=== PATIENT | male | born 1950 | race Caucasian/White ===

== ENCOUNTER → 2016-11-10 | Outpatient (REF) | payer OTHER ==
[~2016-11-10] MED LIST: CIPR500T89 PO; FLAG500T PO; MELO15TA4 PO; QUIN324C2 PO; TRAM50TA2 PO; TYLE500T78 PO; ZITH500T PO
[2016-11-10 12:09] LABS: ALBUMIN 3.3 GM/DL (3.2-5.2); ALBUMIN/GLOBULIN RATIO 1.18 (1.00-1.93); ALKALINE PHOSPHATASE 103 U/L (45-117); ALT/SGPT 27 U/L (12-78); ANION GAP 7 MEQ/L (8-16); AST/SGOT 20 U/L (15-37); BILIRUBIN,TOTAL 0.3 MG/DL (0.2-1.0); BLOOD UREA NITROGEN 22 MG/DL (7-18); CALCIUM LEVEL 8.6 MG/DL (8.8-10.2); CARBON DIOXIDE LEVEL 29 MEQ/L (21-32); CHLORIDE LEVEL 106 MEQ/L (98-107); CHOLESTEROL LEVEL 171 MG/DL (<200); CREATININE FOR GFR 0.86 MG/DL (0.70-1.30); GLOMERULAR FILTRATION RATE > 60.0 (>49); GLUCOSE, FASTING 97 MG/DL (80-110); POTASSIUM SERUM 4.3 MEQ/L (3.5-5.1); SODIUM LEVEL 142 MEQ/L (136-145); TOTAL PROTEIN 6.1 GM/DL (6.4-8.2); TRIGLYCERIDES LEVEL 51 MG/DL (<150)
== END ==
LOC: M SFHCLERA 08:02
PROVIDERS: ATTEND Physician Assistant
DX: E78.2 Mixed hyperlipidemia (principal); R73.01 Impaired fasting glucose; E55.9 Vitamin D deficiency, unspecified

== ENCOUNTER 2017-03-28 06:40 | Observation (INO) | payer BC, OTHER ==
[~2017-03-28] VITALS: Ht 165.1 cm; Wt 102.5 kg
[~2017-03-28 06:40] MED LIST changes: +CIPR-249 PO; -CIPR500T89 PO
[2017-03-28] MEDS ORDERED: CO Q100C10 PO (07:18)
[2017-03-28] MEDS ORDERED: [UNRECOGNIZED DRUG - CODE] PO (07:18)
[2017-03-28] MEDS ORDERED: MULT1TAB19 PO (07:18)
[2017-03-28] MEDS ORDERED: GABA-283 PO (07:18)
[2017-03-28] MEDS ORDERED: CALC1TAB40 PO (07:18)
[2017-03-28] MEDS ORDERED: GLUC750T22 PO (07:18)
[2017-03-28] MEDS ORDERED: VITA1CHW5 PO (07:18)
[2017-03-28] MEDS ORDERED: [UNRECOGNIZED DRUG - CODE] PO (07:18)
[2017-03-28] MEDS ORDERED: GARL10CA2 PO (07:18)
[2017-03-28] MEDS ORDERED: CHON150C PO (07:18)
[2017-03-28] MEDS ORDERED: CRAN600T PO (07:18)
--- NOTE | 2017-03-28 07:29 | ECGEPIP ---
Stationary ECG Study [facility] - ED Test Date: 2017-03-28 Pat Name: GHAZALA DAMIAN Department: Room: - Gender: M [employer]st: : 1950 Requested By: LOVE BARNETT Order Number: [id number] Reading MD: Chelsea Abreu Measurements Intervals Chandler Rate: 57 P: 35 MA: 188 QRS: -58 QRSD: 156 T: 4 QT: 431 QTc: 420 Interpretive Statements SINUS BRADYCARDIA RIGHT BUNDLE BRANCH BLOCK LEFT ANTERIOR FASCICULAR BLOCK SIMILAR 07/11/16 Electronically Signed On 03-28-2017 7:28:46 EDT by Chelsea Abreu
--- NOTE | 2017-03-28 07:32 | REP ---
Portable chest, 03/28/2017, 07:07 a.m., single AP view the patient semi upright: Comparison is a 11/17 2014. The lung cruz are clear, unchanged. Cardiac size appears enlarged, however there has magnification from portable positioning. Cardiac size is unchanged. The caitlin, mediastinum, bony thorax are unremarkable. Impression: No acute cardiopulmonary findings. Chronic cardiomegaly. Signed by Saul Mallory MD 03/28/2017 07:23 A
[2017-03-28 07:53] LABS: INR 1.03
[2017-03-28 07:56] LABS: BASO % 0.4 % (0.0-1.0); EOS # 0.2 K/mm3 (0.0-0.50); EOS % 1.8 % (0.0-3.0); LARGE UNSTAINED CELL # 0.1 K/mm3 (0.0-0.4); LARGE UNSTAINED CELL % 0.6 % (0.0-4.0); LYMPH # 0.8 K/mm3 (1.5-4.5); LYMPH % 6.3 % (24.0-44.0); MEAN CORPUSCULAR HEMOGLOBIN 30.1 pg (27.0-33.0); MEAN CORPUSCULAR HGB CONC 32.8 g/dl (32.0-36.5); MEAN CORPUSCULAR VOLUME 91.6 fl (80.0-96.0); MONO # 0.8 K/mm3 (0.0-0.8); MONO % 6.4 % (0.0-5.0); NEUTROPHILS % 84.6 % (36.0-66.0); PLATELET COUNT, AUTOMATED 284 k/mm3 (150-450); WHITE BLOOD COUNT 11.9 K/mm3 (4.0-10.0)
[2017-03-28 08:00] LABS: ALBUMIN 2.9 GM/DL (3.2-5.2); ALBUMIN/GLOBULIN RATIO 0.81 (1.00-1.93); ALKALINE PHOSPHATASE 74 U/L (45-117); ALT/SGPT 24 U/L (12-78); ANION GAP 8 MEQ/L (8-16); AST/SGOT 20 U/L (15-37); BILIRUBIN,DIRECT 0.1 MG/DL (0.0-0.2); BILIRUBIN,TOTAL 0.4 MG/DL (0.2-1.0); BLOOD UREA NITROGEN 31 MG/DL (7-18); CALCIUM LEVEL 8.7 MG/DL (8.8-10.2); CARBON DIOXIDE LEVEL 28 MEQ/L (21-32); CHLORIDE LEVEL 104 MEQ/L (98-107); CREATININE FOR GFR 0.89 MG/DL (0.70-1.30); GLOMERULAR FILTRATION RATE > 60.0 (>49); GLUCOSE, FASTING 117 MG/DL (80-110); POTASSIUM SERUM 4.1 MEQ/L (3.5-5.1); SODIUM LEVEL 140 MEQ/L (136-145); TOTAL PROTEIN 6.5 GM/DL (6.4-8.2)
[2017-03-28] MEDS ORDERED: ONDANSETRON 4MG/2ML VIAL (J2405) IV ONE (08:15)
[2017-03-28] MEDS ORDERED: MORPHINE 2 MG/ML 1ML SYRINGE IV ONE ×2 (08:15→12:30)
--- NOTE | 2017-03-28 11:01 | REP ---
Soft-tissue ultrasound right wrist with Doppler: History: Status post radial artery catheterization procedure March 25, 2017 with right arm pain. Sonographic findings: Scanning of the region of the radial aspect the right wrist demonstrates patent radial artery without evidence of pseudoaneurysm or dissection or occlusion. No hematoma is appreciated. No abnormal fluid collection is seen. Impression: Unremarkable right wrist ultrasound with Doppler. No evidence of pseudoaneurysm, hematoma, or occlusion. Signed by Gildardo Del Angel MD 03/28/2017 04:22 P
[2017-03-28] MEDS ORDERED: MORPHINE 2 MG/ML 1ML SYRINGE IV PRN (12:30)
[2017-03-28] MEDS ORDERED: ONDANSETRON 4MG/2ML VIAL (J2405) IV PRN (12:30)
[2017-03-28] MEDS ORDERED: NEUR300C PO (13:31)
[2017-03-28] MEDS ORDERED: FLAX1000 PO (13:31)
[2017-03-28] MEDS ORDERED: ASCO250T PO (13:31)
[2017-03-28] MEDS ORDERED: [UNRECOGNIZED DRUG - CODE] PO (13:32)
[2017-03-28 14:46] VITALS: BP 132/68
[2017-03-28] MEDS: NORCO, ANEXSIA 5/325MG TABLET (HYDROcodone/ACETAMINOPHEN) PO PRN ×2 (15:45→19:37)
--- NOTE | 2017-03-28 16:15 | HPEPDOC ---
General Date of Admission Mar 28, 2017 at 12:23 Other Providers PCP: Carlos Manuel Crawley PA-C Chief Complaint The patient is a 66-year-old male admitted with a reason for visit of Postprocedural Pain Of Extremity. History of Present Illness 66-year-old male with past medical history of SURI, morbid obesity, diabetes mellitus, kidney stones, and chronic chest pain presented to the ER with a chief complaint of right wrist pain. Of note, the patient underwent an extensive cardiac workup at [facility] from 03/21-03/25/17 for complaints of chest pain over the last few months. He had a cardiac catheterization done which was done through the radial artery on the right upper extremity. There were no acute findings to explain the patient's chest pain according to the patient and there were no stents placed. The patient was subsequently discharged from the hospital. 2 days later the patient states that he started to feel significant pain in his right wrist and forearm area. He describes the pain as a burning sensation. He denies any trauma to the extremity or any change in coloration. He denies noting any swelling in the extremity. He described the pain as 8 out of 10 in intensity at its worst. He denies any complaints of fevers, chills, shortness of breath, palpitations, abdominal pain , or any nausea/vomiting/diarrhea. In the ER, an ultrasound of the right upper extremity revealed no acute findings. Vascular surgery was consulted and evaluated the patient in the ER as well. No further intervention was deemed indicated. At this time, the patient will be admitted to the hospitalist service for observation. Home Medications Scheduled (Multi Vitamin with Iron) 1 Tab Tab, 1 TAB PO DAILY, (Reported) (Glucosamine) 750 Mg Tab, 1,500 MG PO BID, (Reported) (Co Q 10) 100 Mg Cap, 100 MG PO BID, (Reported) (Calcium & Magnesium + Zin 334-134-5 mg) 1 Tab Tab, 1 TAB PO TID, (Reported) Ascorbic Acid (Ascorbic Acid) 250 Mg Tab, 250 MG PO BID, (Reported) Chondroitin Sulfate A (Chondroitin Sulfate) 150 Mg Cap, 1,200 MG PO BID, ( Reported) Cranberry Extract (Cranberry) 600 Mg Tab, 1,000 MG PO DAILY, (Reported) Gabapentin (Neurontin) 300 Mg Cap, 300 MG PO TID, (Reported) Garlic (Odor Free Garlic) 100 Mg Tab, 100 MG PO DAILY, (Reported) Linseed Oil (Flaxseed Oil) 1,000 Mg Cap, 1,000 MG PO DAILY, (Reported) Meloxicam (Meloxicam) 15 Mg Tab, 15 MG PO DAILY, (Reported) Methylsulfonylmethane (Msm) 1,000 Mg Cap, 1,000 MG PO TID, (Reported) Quinine Sulfate (Qualaquin) 324 Mg Cap, 324 MG PO DAILY, (Reported) Tramadol HCl (Tramadol HCl) 50 Mg Tab, 50 MG PO BID, (Reported) Scheduled PRN Acetaminophen (Tylenol Extra Strength) 500 Mg Tab, 1,000 MG PO PRN PRN for PAIN, (Reported) Allergies Coded Allergies: No Known Allergies (Verified , 03/18/03) Past Medical History Medical History As noted in HPI. Surgical History Gastric bypass, left breast mass removal, EGD and colonoscopy about 5 years ago , Penile lesion removal, Cardiac Catheterization on 03/25/17 Family History Father and brother had prostate cancer. Multiple members of the family with a history of diabetes Social History * Smoker: other (smoked a pipe daily for about 10 years, quit 20 years ago) Alcohol: occationally Drugs: denies Currently works as a welder fitter helper. Lives with his and is independent in his activities of daily living Review of Symptoms Other systems 10 point review of systems negative unless otherwise specified in HPI. Physical Examination General Exam: Positive: Alert, Cooperative, No Acute Distress ENT Exam: Positive: Atraumatic, Mucous membr. moist/pink Neck Exam: Negative: JVD Chest Exam: Positive: Clear to auscultation, Normal air movement Heart Exam: Positive: Rate Normal, Normal S1, Normal S2 Telemetry: Positive: Sinus Abdomen Exam: Positive: Soft, Negative: Tenderness Extremity Exam: Positive: Other (right upper extremity tender to palpation mostly on the dorsal surface extending from the forearm to the hand. However, no superficial swelling or lesions noted. No sign of compartment syndrome. Neurovascularly intact distally with strong pulses. Puncture site along the radial artery noted with no surrounding erythema or induration.) Psych Exam: Positive: Oriented x 3 Vital Signs Vital Signs Date Time Temp Pulse Resp B/P (MAP) Pulse Ox O2 Delivery O2 Flow Rate FiO2 03/28/17 15:45 20 03/28/17 14:46 98.6 70 132/68 (89) 93 Room Air 7/17/17 12:26 2.0 Laboratory Data Labs 24H Laboratory Tests 2 03/28/17 07:26: White Blood Count 11.9H, Red Blood Count 4.40, Hemoglobin 13.2L, Hematocrit 40.3L, Mean Corpuscular Volume 91.6, Mean Corpuscular Hemoglobin 30.1, Mean Corpuscular Hemoglobin Concent 32.8, Red Cell Distribution Width 14.0, Platelet Count 284, Neutrophils (%) (Auto) 84.6H, Lymphocytes (%) (Auto) 6.3L, Monocytes (%) (Auto) 6.4H, Eosinophils (%) (Auto) 1.8, Basophils (%) (Auto) 0.4, Neutrophils # (Auto) 10.0H, Lymphocytes # (Auto) 0.8L, Monocytes # (Auto) 0.8, Eosinophils # (Auto) 0.2, Basophils # (Auto) 0.0, Large Unclassified Cells % 0.6 , Large Unclassified Cells # 0.1, Prothrombin Time 13.6, Prothromb Time International Ratio 1.03, Activated Partial Thromboplast Time 29.9, Anion Gap 8 , Glomerular Filtration Rate > 60.0, Calcium Level 8.7L, Aspartate Amino Transf (AST/SGOT) 20, Alanine Aminotransferase (ALT/SGPT) 24, Alkaline Phosphatase 74, Total Bilirubin 0.4, Direct Bilirubin 0.1, Total Creatine Kinase 62, Creatine Kinase MB 1.0, Creatine Kinase MB Relative Index 1.61, Troponin I 0.04, B-Type Natriuretic Peptide 36.1, Total Protein 6.5, Albumin 2.9L, Albumin/Globulin Ratio 0.81L, Lipase 120, Thyroid Stimulating Hormone (TSH) 2.040 CBC/BMP Laboratory Tests 03/28/17 07:26 Red Blood Count 4.40, Mean Corpuscular Volume 91.6, Mean Corpuscular Hemoglobin 30.1, Mean Corpuscular Hemoglobin Concent 32.8, Red Cell Distribution Width 14.0 , Neutrophils (%) (Auto) 84.6 H, Lymphocytes (%) (Auto) 6.3 L, Monocytes (%) ( Auto) 6.4 H, Eosinophils (%) (Auto) 1.8, Basophils (%) (Auto) 0.4, Neutrophils # (Auto) 10.0 H, Lymphocytes # (Auto) 0.8 L, Monocytes # (Auto) 0.8, Eosinophils # (Auto) 0.2, Basophils # (Auto) 0.0 Plan / VTE VTE Prophylaxis Ordered?: Yes Plan Plan RUE Tenderness following Cardiac Catheterization on 03/25/17 U/S of the Extremity with no acute findings No signs of compartment syndrome noted Patient neurovascularly intact, strong pulse palpated distally No significant superficial lesions, swelling noted Possibly attributable to neuropathic pain following procedure? WBC slightly elevated at 11.9K, Afebrile, HR wnl, CRP ordered Will cont with pain management at this time Vascular Surgery on board--input appreciated Chronic Chest Pain EKG with no acute changes compared to previous tracings, initial troponin wnl-- will serially trend Patient apparently had a full work up at [facility] last week and was not found to have any acute findings Will obtain records Diet Controlled DM Cont diabetic diet Peripheral Neuropathy 2/2 DM Cont Gabapentin DVT Prophylaxis Heparin MOISES NGO MD Mar 28, 2017 16:15
[2017-03-28] MEDS: HEPARIN SOD (PORCINE) 5000 UNITS/ML VIAL SC SCH ×2 (16:24→21:45)
[2017-03-28 20:00] VITALS: BP 101/55
[2017-03-28] MEDS: GABAPENTIN 300 MG CAP PO SCH (21:43)
[2017-03-28] MEDS: traMADol 50 MG TAB PO SCH (21:44)
[2017-03-28] MEDS: PERCOCET 5MG/325MG TAB PO PRN (21:44)
[2017-03-28] MEDS: ASCORBIC ACID 250 MG TAB PO SCH (21:45)
[2017-03-28 23:59] VITALS: BP 110/64
[2017-03-29] MEDS ORDERED: SLF 3 ML SYR IV PRN (00:15)
[2017-03-29 04:45] VITALS: BP 110/74
[2017-03-29] MEDS: HEPARIN SOD (PORCINE) 5000 UNITS/ML VIAL SC SCH ×3 (05:14→21:26)
[2017-03-29] MEDS: SLF 3 ML SYR IV SCH ×3 (05:14→21:28)
[2017-03-29 08:00] VITALS: BP 126/78
[2017-03-29 08:33] LABS: MEAN CORPUSCULAR HEMOGLOBIN 30.2 pg (27.0-33.0); MEAN CORPUSCULAR HGB CONC 32.7 g/dl (32.0-36.5); MEAN CORPUSCULAR VOLUME 92.5 fl (80.0-96.0); RED CELL DISTRIBUTION WIDTH 13.9 % (11.5-14.5)
[2017-03-29 08:47] LABS: ANION GAP 8 MEQ/L (8-16); BLOOD UREA NITROGEN 24 MG/DL (7-18); CALCIUM LEVEL 8.8 MG/DL (8.8-10.2); CARBON DIOXIDE LEVEL 29 MEQ/L (21-32); CHLORIDE LEVEL 104 MEQ/L (98-107); CREATININE FOR GFR 0.87 MG/DL (0.70-1.30); GLOMERULAR FILTRATION RATE > 60.0 (>49); GLUCOSE, FASTING 90 MG/DL (80-110); MAGNESIUM LEVEL 2.3 MG/DL (1.8-2.4); POTASSIUM SERUM 4.4 MEQ/L (3.5-5.1); SODIUM LEVEL 141 MEQ/L (136-145)
--- NOTE | 2017-03-29 08:53 | IPNPDOC ---
Subjective Date Seen The patient was seen on 03/29/17. Subjective Chief Complaint/HPI Patient seen and examined at the bedside. States that he is feeling better and notes that his right upper extremity is in less pain and he has better range of motion. Objective Physical Examination General Exam: Positive: Alert, Cooperative, No Acute Distress ENT Exam: Positive: Atraumatic, Mucous membr. moist/pink Neck Exam: Negative: JVD Chest Exam: Positive: Clear to auscultation, Normal air movement Heart Exam: Positive: Rate Normal, Normal S1, Normal S2 Telemetry: Positive: Sinus Abdomen Exam: Positive: Soft, Negative: Tenderness Extremity Exam: Positive: Other (right upper extremity tender to palpation mostly on the dorsal surface extending from the forearm to the hand. However, no superficial swelling or lesions noted. No sign of compartment syndrome. Neurovascularly intact distally with strong pulses. Puncture site along the radial artery noted with no surrounding erythema or induration. Better range of motion of right sided fingers, hand and, wrist.) Psych Exam: Positive: Oriented x 3 Assessment /Plan Plan/VTE VTE Prophylaxis Ordered?: Yes Plan RUE Tenderness following Cardiac Catheterization on 03/25/17 U/S of the Extremity with no acute findings No signs of compartment syndrome noted Patient neurovascularly intact, strong pulse palpated distally No significant superficial lesions, swelling noted Possibly attributable to neuropathic pain following procedure? WBC has normalized, low grade fever overnight, HR wnl Patient states that his RUE is much less painful this morning, and he notes that he has improved ROM of the right sided fingers, hand, and wrist Occupational Therapy worked with him this morning as well Will cont with pain management at this time Vascular Surgery on board--input appreciated Chronic Chest Pain EKG with no acute changes compared to previous tracings Troponin negative x 3 Patient apparently had a full work up at [facility] last week and was not found to have any acute findings Records from [facility] pending Diet Controlled DM Cont diabetic diet Peripheral Neuropathy 2/2 DM Cont Gabapentin DVT Prophylaxis Heparin SC Dispo--Will follow up with vascular surgery recommendations, OT optimization, pain control, anticipate D/C in next 24 hrs. VS, I&O, 24H, Fishbone Vital Signs/I&O Vital Signs Date Time Temp Pulse Resp B/P (MAP) Pulse Ox O2 Delivery O2 Flow Rate FiO2 03/29/17 04:45 98.9 50 18 110/74 (86) 94 Room Air 03/28/17 12:26 2.0 I&O- Last 24 Hours up to 6 AM 03/29/17 06:00 Intake Total 360 ml Output Total 0 ml Balance 360 ml Laboratory Data 24H LABS Laboratory Tests 2 03/28/17 16:12: Total Creatine Kinase 48, Creatine Kinase MB 1.0, Creatine Kinase MB Relative Index 2.08, Troponin I 0.02#, C-Reactive Protein, Quantitative 7.98H 03/28/17 23:53: Total Creatine Kinase 40, Creatine Kinase MB 1.0, Creatine Kinase MB Relative Index 2.50, Troponin I 0.03# 03/29/17 07:56: CBC/BMP Laboratory Tests 03/29/17 07:56 Red Blood Count 4.56, Mean Corpuscular Volume 92.5, Mean Corpuscular Hemoglobin 30.2, Mean Corpuscular Hemoglobin Concent 32.7, Red Cell Distribution Width 13.9 MOISES SEPULVEDA MD Mar 29, 2017 08:53
[2017-03-29] MEDS: quiNINE SULFATE 324 MG CAP (QUALAQUIN) PO SCH (09:15)
[2017-03-29] MEDS: ASCORBIC ACID 250 MG TAB PO SCH ×2 (09:15→21:27)
[2017-03-29] MEDS: traMADol 50 MG TAB PO SCH ×2 (09:16→21:27)
[2017-03-29] MEDS: GABAPENTIN 300 MG CAP PO SCH ×3 (09:16→21:28)
[2017-03-29 12:00] VITALS: BP 115/70
[2017-03-29 14:03] LABS: URIC ACID 4.1 MG/DL (3.5-7.2)
[2017-03-29 16:00] VITALS: BP 130/80
[2017-03-29 20:00] VITALS: BP 142/80
[2017-03-29] MEDS: ACETAMINOPHEN TAB 650MG DOSE (2X325MG) PO PRN (21:26)
[2017-03-29] MEDS: PERCOCET 5MG/325MG TAB PO PRN (21:27)
[2017-03-30] VITALS: BP 117/70
[2017-03-30 04:00] VITALS: BP 114/72
[2017-03-30] MEDS: SLF 3 ML SYR IV SCH (05:06)
[2017-03-30] MEDS: HEPARIN SOD (PORCINE) 5000 UNITS/ML VIAL SC SCH (05:06)
[2017-03-30 05:34] LABS: MEAN CORPUSCULAR HEMOGLOBIN 30.5 pg (27.0-33.0); MEAN CORPUSCULAR VOLUME 92.4 fl (80.0-96.0); RED CELL DISTRIBUTION WIDTH 13.9 % (11.5-14.5)
[2017-03-30 06:01] LABS: ANION GAP 6 MEQ/L (8-16); BLOOD UREA NITROGEN 23 MG/DL (7-18); CALCIUM LEVEL 8.7 MG/DL (8.8-10.2); CARBON DIOXIDE LEVEL 30 MEQ/L (21-32); CHLORIDE LEVEL 104 MEQ/L (98-107); CREATININE FOR GFR 0.84 MG/DL (0.70-1.30); GLOMERULAR FILTRATION RATE > 60.0 (>49); GLUCOSE, FASTING 83 MG/DL (80-110); POTASSIUM SERUM 4.1 MEQ/L (3.5-5.1); SODIUM LEVEL 140 MEQ/L (136-145)
[2017-03-30 08:00] VITALS: BP 134/79
[2017-03-30] MEDS: ACETAMINOPHEN TAB 650MG DOSE (2X325MG) PO PRN (08:00)
[2017-03-30] MEDS: ASCORBIC ACID 250 MG TAB PO SCH (08:58)
[2017-03-30] MEDS: quiNINE SULFATE 324 MG CAP (QUALAQUIN) PO SCH (08:58)
[2017-03-30] MEDS: GABAPENTIN 300 MG CAP PO SCH (08:59)
[2017-03-30] MEDS: traMADol 50 MG TAB PO SCH (08:59)
[2017-03-30] MEDS ORDERED: OXYC1TAB23 PO (09:00)
--- NOTE | 2017-03-30 11:06 | DS.PDOC ---
Discharge Summary General Date of Admission Mar 28, 2017 at 12:23 Date of Discharge 03/30/17 Specialist/Consultants Involve: Selvin Amor MD Discharge Summary PROCEDURES PERFORMED DURING STAY: None. ADMITTING DIAGNOSES: 1. .RUE Tenderness following Cardiac Catheterization on 03/25/17 DISCHARGE DIAGNOSES: 1. .RUE Tenderness following Cardiac Catheterization on 03/25/17 COMPLICATIONS/CHIEF COMPLAINT: Postprocedural Pain Of Extremity. HISTORY OF PRESENT ILLNESS: . 66-year-old male with past medical history of SURI, morbid obesity, diabetes mellitus, kidney stones, and chronic chest pain presented to the ER with a chief complaint of right wrist pain. Of note, the patient underwent an extensive cardiac workup at [facility] from 03/21-03/25/17 for complaints of chest pain over the last few months. He had a cardiac catheterization done which was done through the radial artery on the right upper extremity. There were no acute findings to explain the patient's chest pain according to the patient and there were no stents placed. The patient was subsequently discharged from the hospital. 2 days later the patient states that he started to feel significant pain in his right wrist and forearm area. He describes the pain as a burning sensation. He denies any trauma to the extremity or any change in coloration. He denies noting any swelling in the extremity. He described the pain as 8 out of 10 in intensity at its worst. He denies any complaints of fevers, chills, shortness of breath, palpitations, abdominal pain , or any nausea/vomiting/diarrhea. In the ER, an ultrasound of the right upper extremity revealed no acute findings. Vascular surgery was consulted and evaluated the patient in the ER as well. No further intervention was deemed indicated. At this time, the patient will be admitted to the hospitalist service for observation. During hospitalization, the patient was provided with supportive treatment and pain control. The pain in the patient's right forearm, wrist, and hand subsequently improved. The patient always maintained a strong pulse in the extremity, was neurovascularly intact distally, with no significant swelling, or any signs of compartment syndrome. The patient now has increased range of motion in the extremity and states that he is feeling much better. The patient was seen by occupational therapy here and it was recommended that the patient follow-up with outpatient occupational therapy for further functional optimization. I did discuss the case with Dr. Mt of vascular surgery once again, and he indicated that the patient's pain can possibly be explained by underlying neuropathic pain from a history of diabetes which may have been exacerbated following his most recent procedure. Uric acid level was noted to be within normal limits to rule out gout. At this time, the patient states that he is feeling better and he is eager to return home. I have advised that patient to follow-up with his primary care physician within one week. In addition, the patient has been advised to return to ER if his symptoms were to persist or return. DISCHARGE MEDICATIONS: Please see below. ALLERGIES: Please see below. PHYSICAL EXAMINATION ON DISCHARGE: VITAL SIGNS: Please see below. General Exam: Positive: Alert, Cooperative, No Acute Distress ENT Exam: Positive: Atraumatic, Mucous membr. moist/pink Neck Exam: Negative: JVD Chest Exam: Positive: Clear to auscultation, Normal air movement Heart Exam: Positive: Rate Normal, Normal S1, Normal S2 Telemetry: Positive: Sinus Abdomen Exam: Positive: Soft, Negative: Tenderness Extremity Exam: Positive: Other (right upper extremity non-tender to palpation. No superficial swelling or lesions noted. No sign of compartment syndrome. Neurovascularly intact distally with strong pulses. Puncture site along the radial artery noted with no surrounding erythema or induration. Improved range of motion of right sided fingers, hand, wrist, and forearm.) Psych Exam: Positive: Oriented x 3 LABORATORY DATA: Please see below. IMAGING: Soft-tissue ultrasound right wrist with Doppler: History: Status post radial artery catheterization procedure March 25, 2017 with right arm pain. Sonographic findings: Scanning of the region of the radial aspect the right wrist demonstrates patent radial artery without evidence of pseudoaneurysm or dissection or occlusion. No hematoma is appreciated. No abnormal fluid collection is seen. Impression: Unremarkable right wrist ultrasound with Doppler. No evidence of pseudoaneurysm , hematoma, or occlusion. PROGNOSIS: Medically stable ACTIVITY: As tolerated. DIET: . Carb consistent diet DISCHARGE PLAN: DISPOSITION: . Home DISCHARGE INSTRUCTIONS: 1. . Follow-up with primary care physician within one week 2. . Return to ER if symptoms return or persist 3. . Follow-up with outpatient occupational therapy for further functional optimization DISCHARGE CONDITION: Stable. TIME SPENT ON DISCHARGE: Greater than 30 minutes. Vital Signs/I&Os Vital Signs Date Time Temp Pulse Resp B/P (MAP) Pulse Ox O2 Delivery O2 Flow Rate FiO2 03/30/17 08:59 16 03/30/17 08:00 97.1 52 134/79 (97) 95 Room Air 03/28/17 12:26 2.0 I&O- Last 24 Hours up to 6 AM 03/30/17 06:00 Intake Total 1900 ml Output Total 2350 ml Balance -450 ml Laboratory Data Labs 24H Laboratory Tests 2 03/30/17 05:09: Anion Gap 6L, Glomerular Filtration Rate > 60.0, Blood Urea Nitrogen 23H, Creatinine 0.84, Sodium Level 140, Potassium Level 4.1, Chloride Level 104, Carbon Dioxide Level 30, Calcium Level 8.7L, C-Reactive Protein, Quantitative 9.87H CBC/BMP Laboratory Tests 03/30/17 05:09 Red Blood Count 4.02 L, Mean Corpuscular Volume 92.4, Mean Corpuscular Hemoglobin 30.5, Mean Corpuscular Hemoglobin Concent 33.0, Red Cell Distribution Width 13.9, Calcium Level 8.7 L Discharge Medications Scheduled (Multi Vitamin with Iron) 1 Tab Tab, 1 TAB PO DAILY, (Reported) (Glucosamine) 750 Mg Tab, 1,500 MG PO BID, (Reported) (Co Q 10) 100 Mg Cap, 100 MG PO BID, (Reported) (Calcium & Magnesium + Zin 334-134-5 mg) 1 Tab Tab, 1 TAB PO TID, (Reported) Ascorbic Acid (Ascorbic Acid) 250 Mg Tab, 250 MG PO BID, (Reported) Chondroitin Sulfate A (Chondroitin Sulfate) 150 Mg Cap, 1,200 MG PO BID, ( Reported) Cranberry Extract (Cranberry) 600 Mg Tab, 1,000 MG PO DAILY, (Reported) Gabapentin (Neurontin) 300 Mg Cap, 300 MG PO TID, (Reported) Garlic (Odor Free Garlic) 100 Mg Tab, 100 MG PO DAILY, (Reported) Linseed Oil (Flaxseed Oil) 1,000 Mg Cap, 1,000 MG PO DAILY, (Reported) Meloxicam (Meloxicam) 15 Mg Tab, 15 MG PO DAILY, (Reported) Methylsulfonylmethane (Msm) 1,000 Mg Cap, 1,000 MG PO TID, (Reported) Quinine Sulfate (Qualaquin) 324 Mg Cap, 324 MG PO DAILY, (Reported) Tramadol HCl (Tramadol HCl) 50 Mg Tab, 50 MG PO BID, (Reported) Scheduled PRN Acetaminophen (Tylenol Extra Strength) 500 Mg Tab, 1,000 MG PO PRN PRN for PAIN, (Reported) Oxycodone/Acetaminophen (Oxycodone/Acetaminophen 5-325 mg) 1 Tab Tab, 1 TAB PO Q4HP PRN for PAIN SCALE 6-10 Allergies Coded Allergies: No Known Allergies (Verified , 03/18/03) MOISES SEPULVEDA MD Mar 30, 2017 11:06
== END 2017-03-30 11:00 | disposition home or self-care (01) ==
LOC: M ED 06:40 → M ED INP 12:23 → M PCU 14:40
PROVIDERS: ADMIT Internal Medicine; ATTEND Internal Medicine
DX: G89.18 Other acute postprocedural pain (principal); Z98.61 Coronary angioplasty status; M79.601 Pain in right arm; R07.9 Chest pain, unspecified; E11.9 Type 2 diabetes mellitus without complications; Z79.899 Other long term (current) drug therapy; Z98.84 Bariatric surgery status; E66.01 Morbid (severe) obesity due to excess calories
CPT/HCPCS: 36415; 71010; 80048; 80076; 82550; 82553; 83690; 83735; 83880; 84443; 84550; 85025; 85027; 85610; 85730; 86140; 93005; 93041; 93976; 94760; 96372; 96374; 96375; 96376; 97110; 97165; 99285; J2405

== ENCOUNTER → 2017-05-13 | Outpatient (REF) | payer OTHER ==
[~2017-05-13] MED LIST changes: +ASCO250T PO; +CALC1TAB40 PO; +CHON150C PO; +CO Q100C10 PO; +CRAN600T PO; +FLAX1000 PO; +GABA-283 PO; +GARL10CA2 PO; +GLUC750T22 PO; +MULT1TAB19 PO; +NEUR300C PO; +OXYC1TAB23 PO; +VITA1CHW5 PO; +[UNRECOGNIZED DRUG - CODE] PO; +[UNRECOGNIZED DRUG - CODE] PO; +[UNRECOGNIZED DRUG - CODE] PO
[2017-05-13 11:35] LABS: ALBUMIN 3.2 GM/DL (3.2-5.2); ALBUMIN/GLOBULIN RATIO 1.03 (1.00-1.93); ALKALINE PHOSPHATASE 83 U/L (45-117); ALT/SGPT 31 U/L (12-78); ANION GAP 9 MEQ/L (8-16); AST/SGOT 23 U/L (15-37); BILIRUBIN,TOTAL 0.4 MG/DL (0.2-1.0); BLOOD UREA NITROGEN 21 MG/DL (7-18); CALCIUM LEVEL 8.4 MG/DL (8.8-10.2); CARBON DIOXIDE LEVEL 28 MEQ/L (21-32); CHLORIDE LEVEL 106 MEQ/L (98-107); CHOLESTEROL LEVEL 150 MG/DL (<200); CREATININE FOR GFR 0.88 MG/DL (0.70-1.30); GLOMERULAR FILTRATION RATE > 60.0 (>49); GLUCOSE, FASTING 88 MG/DL (80-110); POTASSIUM SERUM 4.5 MEQ/L (3.5-5.1); SODIUM LEVEL 143 MEQ/L (136-145); TOTAL PROTEIN 6.3 GM/DL (6.4-8.2); TRIGLYCERIDES LEVEL 60 MG/DL (<150)
== END ==
LOC: M SFHCLERA 08:08
PROVIDERS: ATTEND Physician Assistant
DX: Z98.890 Other specified postprocedural states (principal); E78.2 Mixed hyperlipidemia; Z12.5 Encounter for screening for malignant neoplasm of prostate

== ENCOUNTER → 2017-06-13 | Outpatient (CLI) | payer OTHER | LOC: M LRY 07:17 | PROVIDERS: ATTEND Urology | DX: Z87.442 Personal history of urinary calculi (principal) ==

== ENCOUNTER → 2017-10-22 | Outpatient (REF) | payer MEDICARE, OTHER ==
[2017-10-22 16:14] LABS: INFLUENZA A AMPLIFICATION NEGATIVE (NEGATIVE); INFLUENZA B AMPLIFICATION POSITIVE (NEGATIVE)
== END ==
LOC: M SFHCLERA 13:07
DX: J02.9 Acute pharyngitis, unspecified (principal); R68.89 Other general symptoms and signs
CPT/HCPCS: 87502

== ENCOUNTER 2017-12-26 15:22 | Emergency (ER) | payer MEDICARE, OTHER ==
[2017-12-26] MEDS: PERCOCET 5MG/325MG TAB PO (17:43)
[2017-12-26 18:03] LABS: BASO # 0.1 10^3/uL (0.0-0.2); BASO % 1.1 % (0.0-1.0); EOS # 0.2 10^3/uL (0.0-0.50); EOS % 1.8 % (0.0-3.0); HEMATOCRIT 40.6 % (42.0-52.0); IMMATURE GRANULOCYTE % 3.4 % (0-3.0); LYMPH # 2.6 10^3/uL (1.5-4.5); LYMPH % 20.6 % (24.0-44.0); MEAN CORPUSCULAR HEMOGLOBIN 28.9 pg (27.0-33.0); MEAN CORPUSCULAR VOLUME 90.2 fl (80.0-96.0); MONO # 0.9 10^3/uL (0.0-0.8); MONO % 7.1 % (0.0-5.0); NEUTROPHILS # 8.4 10^3/uL (1.8-7.7); PLATELET COUNT, AUTOMATED 570 10^3/uL (150-450); RED CELL DISTRIBUTION WIDTH 14.7 % (11.5-14.5); WHITE BLOOD COUNT 12.8 10^3/uL (4.0-10.0)
== END 2017-12-26 19:25 | disposition home or self-care (01) ==
LOC: M ED 15:22
DX: S40.011A Contusion of right shoulder, initial encounter (principal); S16.1XXA Strain of muscle, fascia and tendon at neck level, initial encounter; W00.9XXA Unspecified fall due to ice and snow, initial encounter; Y92.89 Other specified places as the place of occurrence of the external cause; Z79.899 Other long term (current) drug therapy
CPT/HCPCS: 72110

== ENCOUNTER 2018-04-18 18:27 | Emergency (ER) | payer MEDICARE, BC, OTHER, SELFPAY ==
[2018-04-18] MEDS: BACTRIM 160MG/800MG DS TAB PO (20:48)
== END 2018-04-18 20:52 | disposition home or self-care (01) ==
LOC: M ED 18:27
DX: L02.416 Cutaneous abscess of left lower limb (principal); L02.211 Cutaneous abscess of abdominal wall; I10 Essential (primary) hypertension; E78.00 Pure hypercholesterolemia, unspecified; Z87.442 Personal history of urinary calculi; Z98.84 Bariatric surgery status; Z79.899 Other long term (current) drug therapy; Z87.891 Personal history of nicotine dependence
CPT/HCPCS: 99283

== ENCOUNTER → 2018-06-07 | Outpatient (REF) | payer MEDICARE, BC, OTHER ==
[2018-06-07 14:17] LABS: FERRITIN 11 NG/ML (26-388); IRON (FE) 50 UG/DL (65-175); PERCENT SATURATION 12.4 % (19.7-50.0); RHEUMATOID FACTOR QUANT < 10.0 IU/ML (<15.0); TOTAL IRON BINDING CAPACITY 403 UG/DL (250-450)
== END ==
LOC: M LAB REF 13:07
DX: Z98.84 Bariatric surgery status (principal); M13.0 Polyarthritis, unspecified; R53.83 Other fatigue
CPT/HCPCS: 83550

== ENCOUNTER 2018-08-08 11:00 | Day surgery (SDC) | payer MEDICARE, BC, OTHER ==
[2018-08-08] MEDS ORDERED: PROPOFOL 200 MG/20 ML VIAL As Ordered ×2 (11:02)
[2018-08-08] MEDS ORDERED: LIDOCAINE 2% INJ 100 MG/5 ML SDV (FOR ANES.) As Ordered (11:02)
[2018-08-08] MEDS: NS 1,000 ML IV (11:22)
== END 2018-08-08 14:01 | disposition home or self-care (01) ==
LOC: M OPP 11:00
DX: K64.0 First degree hemorrhoids (principal); K57.30 Diverticulosis of large intestine without perforation or abscess without bleeding; D50.9 Iron deficiency anemia, unspecified; E11.9 Type 2 diabetes mellitus without complications; M19.90 Unspecified osteoarthritis, unspecified site; G47.30 Sleep apnea, unspecified; Z86.19 Personal history of other infectious and parasitic diseases; Z98.0 Intestinal bypass and anastomosis status; Z79.899 Other long term (current) drug therapy; Z87.891 Personal history of nicotine dependence; Z80.3 Family history of malignant neoplasm of breast; Z98.890 Other specified postprocedural states
CPT/HCPCS: 45378

== ENCOUNTER → 2019-09-27 | Outpatient (REF) | payer MEDICARE, OTHER ==
[~2019-09-27] MED LIST changes: +BACT800T5 PO; +CURAMIN PO; -FLAX1000 PO; +FLAX10008 PO; -GABA-283 PO; +GABA-845 PO; +MELO15TA28 PO; -MELO15TA4 PO; -VITA1CHW5 PO; +VITA250C3 PO; +VITADR PO
[2019-09-27 17:40] LABS: IRON (FE) 75 UG/DL (65-175)
[2019-09-27 17:54] LABS: VITAMIN B12 LEVEL 715 PG/ML (247-911)
== END ==
LOC: M LAB REF 16:36
PROVIDERS: ATTEND Nurse Practitioner Adult Health
DX: E61.1 Iron deficiency (principal); Z98.84 Bariatric surgery status

== ENCOUNTER → 2020-10-01 | Outpatient (REF) | payer MEDICARE, OTHER ==
[2020-10-01 18:04] LABS: PERCENT SATURATION 13.4 % (19.7-50.0)
== END ==
LOC: M LAB REF 16:25
PROVIDERS: ATTEND Nurse Practitioner Adult Health
DX: Z98.84 Bariatric surgery status (principal); D50.9 Iron deficiency anemia, unspecified

== ENCOUNTER → 2020-12-20 | Outpatient (CLI) | payer MEDICARE, BC, OTHER ==
[2020-12-20 10:13] LABS: BASO # 0.1 10^3/uL (0.0-0.2); BASO % 0.9 % (0.0-1.0); EOS # 0.3 10^3/uL (0.0-0.5); EOS % 2.6 % (0.0-3.0); HEMATOCRIT 48.6 % (42.0-52.0); HEMOGLOBIN 15.5 g/dl (13.5-17.5); LYMPH # 1.6 10^3/uL (1.5-5.0); LYMPH % 16.4 % (24.0-44.0); MEAN CORPUSCULAR HEMOGLOBIN 29.5 pg (27.0-33.0); MEAN CORPUSCULAR HGB CONC 31.9 g/dl (32.0-36.5); MEAN CORPUSCULAR VOLUME 92.4 fl (80.0-96.0); MONO # 0.9 10^3/uL (0.0-0.8); MONO % 9.6 % (2.0-8.0); NEUTROPHILS # 6.8 10^3/uL (1.5-8.5); NEUTROPHILS % 69.7 % (36.0-66.0); PLATELET COUNT, AUTOMATED 319 10^3/uL (150-450); RED BLOOD COUNT 5.26 10^6/uL (4.30-6.10); WHITE BLOOD COUNT 9.7 10^3/uL (4.0-10.0)
[2020-12-20 10:35] LABS: ALBUMIN 3.6 GM/DL (3.2-5.2); PERCENT SATURATION 42.3 % (19.7-50.0)
== END ==
LOC: M LAB 09:26
PROVIDERS: ATTEND Orthopaedic Surgery
DX: Z01.812 Encounter for preprocedural laboratory examination (principal); M16.12 Unilateral primary osteoarthritis, left hip; D64.9 Anemia, unspecified

== ENCOUNTER 2021-02-13 15:27 | Emergency (ER) | payer MEDICARE, BC, OTHER ==
[~2021-02-13] VITALS: Ht 162.6 cm; Wt 104.5 kg
[~2021-02-13 15:27] MED LIST changes: +GABA-283 PO; -GABA-845 PO
--- NOTE | 2021-02-13 19:31 | REP ---
INDICATION: PVR, suprapubic catheter placement COMPARISON: None TECHNIQUE: Real time B-mode ultrasound examination using curved array transducer. FINDINGS: Bladder is normal in appearance and measures 9.2 x 8.3 x 7.4 cm (295 cc). There is no evidence for suprapubic catheter within the bladder, but there does appear to be a catheter like structure external and right lateral to the bladder. IMPRESSION: No obvious catheter within the bladder. <Electronically signed by Bro Dietrich > 02/13/21 [id number]
[2021-02-13 20:05] VITALS: BP 139/90
== END 2021-02-13 20:07 | disposition home or self-care (01) ==
LOC: M ED 15:27
DX: T83.028A Displacement of other urinary catheter, initial encounter (principal); Z79.899 Other long term (current) drug therapy

== ENCOUNTER → 2021-04-22 | Outpatient (REF) | payer MEDICARE, BC, OTHER ==
[2021-04-22 11:53] LABS: APPEARANCE, URINE HAZY (CLEAR); BACTERIA, URINE AUTO NEGATIVE (NEGATIVE); BILIRUBIN, URINE AUTO NEGATIVE (NEGATIVE); BLOOD, URINE BLOOD NEGATIVE (NEGATIVE); COLOR, URINE YELLOW (YELLOW); GLUCOSE, URINE (UA) AUTO 1+ mg/dL (NEGATIVE); KETONE, URINE AUTO NEGATIVE (NEGATIVE); LEUKOCYTE ESTERASE, URINE AUTO NEGATIVE (NEGATIVE); NITRITE, URINE AUTO NEGATIVE (NEGATIVE); PROTEIN, URINE AUTO NEGATIVE (NEGATIVE); RBC, URINE AUTO 1 /HPF (0-3); SPECIFIC GRAVITY URINE AUTO 1.013 (1.002-1.035); SQUAMOUS EPITHELIAL CELL UR AU 0 /HPF (0-6); UROBILINOGEN, URINE AUTO 0.2 mg/dL (0.0-2.0); WBC, URINE AUTO 2 /HPF (0-3)
== END ==
LOC: M LAB REF 11:14
PROVIDERS: ATTEND Internal Medicine
DX: Z01.818 Encounter for other preprocedural examination (principal)

== ENCOUNTER → 2021-08-13 | Outpatient (REF) | payer MEDICARE, BC, OTHER ==
[2021-08-13 13:49] LABS: APPEARANCE, URINE HAZY (CLEAR); BACTERIA, URINE AUTO NEGATIVE (NEGATIVE); BILIRUBIN, URINE AUTO NEGATIVE (NEGATIVE); BLOOD, URINE BLOOD NEGATIVE (NEGATIVE); COLOR, URINE AMBER (YELLOW); GLUCOSE, URINE (UA) AUTO NEGATIVE (NEGATIVE); KETONE, URINE AUTO NEGATIVE (NEGATIVE); LEUKOCYTE ESTERASE, URINE AUTO NEGATIVE (NEGATIVE); MUCUS, URINE SMALL (NEGATIVE); NITRITE, URINE AUTO NEGATIVE (NEGATIVE); PROTEIN, URINE AUTO NEGATIVE (NEGATIVE); RBC, URINE AUTO 0 /HPF (0-3); SPECIFIC GRAVITY URINE AUTO 1.018 (1.002-1.035); SQUAMOUS EPITHELIAL CELL UR AU 0 /HPF (0-6); UROBILINOGEN, URINE AUTO 0.2 mg/dL (0.0-2.0); WBC, URINE AUTO 0 /HPF (0-3)
[2021-08-13 13:52] LABS: INR 0.95; PROTHROMBIN TIME 13.1 SECONDS (12.7-14.5)
== END ==
LOC: M LAB REF 12:38
PROVIDERS: ATTEND Internal Medicine
DX: Z01.810 Encounter for preprocedural cardiovascular examination (principal)

== ENCOUNTER → 2023-04-06 | Outpatient (CLI) | payer MEDICARE, BC, OTHER ==
[~2023-04-06] MED LIST changes: +[UNRECOGNIZED DRUG - CODE] PO; -[UNRECOGNIZED DRUG - CODE] PO
[2023-04-06 15:15] LABS: BLOOD UREA NITROGEN 28 MG/DL (9-23); CREATININE FOR GFR 0.99 MG/DL (0.70-1.30); GLOMERULAR FILTRATION RATE > 60.0 (>42)
== END ==
LOC: M LAB 14:01
PROVIDERS: ATTEND Physician Assistant
DX: I73.9 Peripheral vascular disease, unspecified (principal)

== ENCOUNTER → 2023-04-11 | Outpatient (CLI) | payer MEDICARE, BC, OTHER ==
[~2023-04-11] MED LIST changes: +ISOVUE-370 76% 100ML VIAL As Ordered ONE
== END ==
LOC: M RAD 12:14
PROVIDERS: ATTEND Physician Assistant
DX: I70.213 Atherosclerosis of native arteries of extremities with intermittent claudication, bilateral legs (principal)
CPT/HCPCS: 75635; Q9967

== ENCOUNTER → 2025-05-24 | Outpatient (REF) | payer MEDICARE, OTHER ==
[~2025-05-24] MED LIST changes: +ASCO250T16 PO; -GABA-283 PO; +GABA-284 PO; -ISOVUE-370 76% 100ML VIAL As Ordered ONE; -VITA250C3 PO
[2025-05-24 12:25] LABS: IRON (FE) 71 UG/DL (65-175); PERCENT SATURATION 21.0 % (19.7-50.0); PHOSPHORUS LEVEL 3.2 MG/DL (2.4-5.1)
[2025-05-24 12:28] LABS: TOTAL 25(OH) VITAMIN D 62.0 NG/ML (20.0-100.0); VITAMIN B12 LEVEL 579 PG/ML (211-911)
[2025-05-29 15:32] LABS: VITAMIN A, RETINOL LEVEL 54 mcg/dL (38-98)
== END ==
LOC: M LAB REF 11:32
PROVIDERS: ATTEND Internal Medicine
DX: Z98.84 Bariatric surgery status (principal); Z79.899 Other long term (current) drug therapy

== ENCOUNTER 2025-06-25 14:18 | Emergency (ER) | payer MEDICARE, OTHER ==
[~2025-06-25] VITALS: Ht 162.6 cm; Wt 103.1 kg
[2025-06-25] MEDS ORDERED: AMLO1TAB24 (14:26)
[2025-06-25] MEDS ORDERED: OXYC-517 (14:26)
[2025-06-25] MEDS ORDERED: CELE0.09 (14:26)
[2025-06-25] MEDS ORDERED: QUIN324C2 (14:26)
[2025-06-25 17:04] LABS: BASO # 0.1 10^3/uL (0.0-0.2); BASO % 0.8 % (0.0-1.0); EOS # 0.4 10^3/uL (0.0-0.5); EOS % 3.7 % (0.0-3.0); LYMPH # 1.1 10^3/uL (1.5-5.0); LYMPH % 9.5 % (24.0-44.0); MONO # 1.0 10^3/uL (0.0-0.8); MONO % 8.6 % (2.0-8.0); NEUTROPHILS # 8.3 10^3/uL (1.5-8.5); NEUTROPHILS % 75.1 % (36.0-66.0); PLATELET COUNT, AUTOMATED 462 10^3/uL (150-450)
[2025-06-25 17:08] LABS: ERYTHROCYTE SEDIMENTATION RATE 109 mm/hr (0-20)
[2025-06-25 17:26] LABS: C REACTIVE PROTEIN QUANTITATIV 7.3 MG/DL (<1.0); CALCIUM LEVEL 9.0 MG/DL (8.3-10.6); CARBON DIOXIDE LEVEL 29.0 MMOL/L (20-31); CHLORIDE LEVEL 104.0 MMOL/L (98-107); CREATININE FOR GFR 0.92 MG/DL (0.70-1.30); GLOMERULAR FILTRATION RATE 87.3 (>42); POTASSIUM SERUM 4.6 MMOL/L (3.5-5.1); SODIUM LEVEL 143.0 MMOL/L (136-145)
[2025-06-25 18:38] VITALS: BP 143/75; TEMP 97.7; O2SAT 97
== END 2025-06-25 18:49 | disposition home or self-care (01) ==
LOC: M ED 14:18
DX: G89.18 Other acute postprocedural pain (principal); M79.604 Pain in right leg; R22.41 Localized swelling, mass and lump, right lower limb; K57.30 Diverticulosis of large intestine without perforation or abscess without bleeding; N40.0 Benign prostatic hyperplasia without lower urinary tract symptoms; Z96.651 Presence of right artificial knee joint; Z98.84 Bariatric surgery status; Z87.442 Personal history of urinary calculi; Z79.899 Other long term (current) drug therapy; Z88.8 Allergy status to other drugs, medicaments and biological substances